=== PATIENT | male | born 1955 | race Caucasian/White ===

== ENCOUNTER 2020-04-02 22:50 | Emergency (ER) | payer OTHER ==
[~2020-04-02] VITALS: Ht 180.3 cm; Wt 109.0 kg
--- NOTE | 2020-04-02 23:14 | NUR ---
THIS IS A 64 YO MALE BIB [facility] FROM HOME. PATIENT GOT PNA SHOT 4 DAYS AGO, HAS BEEN FEELING SLIGHTLY SOB, MUSCLE/BODY ACHES SINCE THEN. TODAY, HAD ABOUT 6 BEERS, WENT TO SIT ON TOILET AND MISSED, AND GOT STUCK BETWEEN THE TOILET AND THE WALL FOR 2 HOURS. PATIENT BROEK TOILET AFTER 2 NHOURS TO GET OUT AND CALLED [facility]. MINOR SUPERFICIAL LACS TO BILATERAL HANDS. DENIES LOC, DENIES DIZZINESS OR LIGHTHEADED. A&OX4, NSR ON PATIENT CLERICAL ASSISTANT. VSS, NADN. CALL LIGHT IN REACH
--- NOTE | 2020-04-02 23:18 | NUR ---
PATIENT DOES NOT RECALL IF HE TOOK DIMITRI CASTANEDA.
--- NOTE | 2020-04-02 23:23 | NUR ---
PATIENT TO XRAY
[2020-04-02 23:28] LABS: BASOPHILS % (AUTO) 0 % (0-1); EOSINOPHILS % (AUTO) 0 % (1-7); LYMPHOCYTES % (AUTO) 15 % (22-44); MEAN CORPUSCULAR HEMOGLOBIN 34.6 pg (27.5-34.5); MEAN CORPUSCULAR HGB CONC 34.5 g/dL (33.2-36.2); MEAN PLATELET VOLUME 7.9 fL (7.4-10.4); MONOCYTES % (AUTO) 8 % (2-9); NEUTROPHILS % (AUTO) 76 % (42-75); PLATELET COUNT 202 x10^3/uL (130-400); RED CELL DISTRIBUTION WIDTH 13.6 % (9.4-14.8)
[2020-04-02 23:32] LABS: ALANINE AMINOTRANSFERASE 35 U/L (12-78); ALBUMIN 3.8 g/dL (3.4-5.0); ANION GAP 12 mmol/L (5-15); CALCIUM 8.4 mg/dL (8.5-10.1); CHLORIDE 91 mmol/L (98-107); CREATININE 0.74 mg/dL (0.7-1.3)
[2020-04-02 23:33] LABS: MD NO
[2020-04-02 23:37] LABS: ALKALINE PHOSPHATASE 100 U/L (45-117); BILIRUBIN,TOTAL 0.6 mg/dL (0.2-1.0); CREATINE KINASE, TOTAL 170 U/L (39-308); TOTAL PROTEIN 7.3 g/dL (6.4-8.2); TROPONIN I < 0.015 ng/mL (0.000-0.045)
--- NOTE | 2020-04-03 00:11 | NUR ---
PATIENT AMBULATORY WITH STEADY GAIT TO RESTROOM
[2020-04-03 00:12] VITALS: BP 143/97
--- NOTE | 2020-04-03 01:00 | NUR ---
Patient given discharge instructions and they have confirmed that they understand the instructions. Patient ambulatory with steady gait.
== END 2020-04-03 01:17 | disposition home or self-care (01) ==
LOC: ED 04-03 00:10
DX: S51.012A Laceration without foreign body of left elbow, initial encounter (principal); S09.90XA Unspecified injury of head, initial encounter; F10.120 Alcohol abuse with intoxication, uncomplicated; E87.1 Hypo-osmolality and hyponatremia; R94.31 Abnormal electrocardiogram [ECG] [EKG]; I10 Essential (primary) hypertension; W01.0XXA Fall on same level from slipping, tripping and stumbling without subsequent striking against object, initial encounter; Y93.89 Activity, other specified; Y92.098 Other place in other non-institutional residence as the place of occurrence of the external cause; Y99.8 Other external cause status; Y90.9 Presence of alcohol in blood, level not specified
CPT/HCPCS: 36415; 70450; 71046; 80053; 80307; 82550; 84484; 85025; 93005; 99285

== ENCOUNTER 2020-04-04 21:21 | Emergency (ER) | payer MEDICARE, OTHER ==
[~2020-04-04] VITALS: Ht 180.3 cm; Wt 109.1 kg
[2020-04-04] MEDS ORDERED: THIAMINE 100 MG/ML, 2ML IM ONE (22:30)
[2020-04-04] MEDS ORDERED: LORazepam 1MG TABLET PO ONE (22:30)
[2020-04-04 22:38] LABS: BASOPHILS % (AUTO) 1 % (0-1); EOSINOPHILS % (AUTO) 3 % (1-7); LYMPHOCYTES % (AUTO) 25 % (22-44); MEAN CORPUSCULAR HEMOGLOBIN 34.7 pg (27.5-34.5); MEAN CORPUSCULAR HGB CONC 34.5 g/dL (33.2-36.2); MONOCYTES % (AUTO) 11 % (2-9); NEUTROPHILS % (AUTO) 61 % (42-75); PLATELET COUNT 195 x10^3/uL (130-400); RED BLOOD COUNT 4.38 x10^6/uL (4.38-5.82); RED CELL DISTRIBUTION WIDTH 13.7 % (9.4-14.8)
--- NOTE | 2020-04-04 22:40 | NUR ---
Pt requesting something to help clam him. States he feels like he is crawling out of his skin. VSS. ERP aware and orders received.
[2020-04-04 22:43] LABS: ALANINE AMINOTRANSFERASE 40 U/L (12-78); ANION GAP 11 mmol/L (5-15); CALCIUM 8.4 mg/dL (8.5-10.1); CHLORIDE 90 mmol/L (98-107); CREATININE 0.71 mg/dL (0.7-1.3)
[2020-04-04 22:48] LABS: ALKALINE PHOSPHATASE 112 U/L (45-117); TOTAL PROTEIN 7.3 g/dL (6.4-8.2); TROPONIN I < 0.015 ng/mL (0.000-0.045)
[2020-04-04] MEDS ORDERED: THIAMINE 100 MG/ML, 2ML ONE (23:03)
[2020-04-04] MEDS ORDERED: LORazepam 1MG TABLET ONE (23:03)
--- NOTE | 2020-04-04 23:10 | NUR ---
Pt medicated per MAR. VSS. Pt to be d/c home if able to ambulate.
--- NOTE | 2020-04-04 23:14 | NUR ---
Tech at bedside for EKG.
[2020-04-04 23:33] LABS: MD SCAN
[2020-04-04 23:58] VITALS: BP 117/82
== END 2020-04-05 00:10 | disposition home or self-care (01) ==
LOC: ED 23:30
DX: F10.120 Alcohol abuse with intoxication, uncomplicated (principal); E87.1 Hypo-osmolality and hyponatremia; Z72.9 Problem related to lifestyle, unspecified; R53.1 Weakness; R53.83 Other fatigue; R63.0 Anorexia; R94.31 Abnormal electrocardiogram [ECG] [EKG]; I10 Essential (primary) hypertension; E78.5 Hyperlipidemia, unspecified; Z87.891 Personal history of nicotine dependence; W01.0XXA Fall on same level from slipping, tripping and stumbling without subsequent striking against object, initial encounter; Y93.89 Activity, other specified; Y92.89 Other specified places as the place of occurrence of the external cause; Y99.8 Other external cause status; Y90.9 Presence of alcohol in blood, level not specified
CPT/HCPCS: 36415; 80053; 80307; 82140; 84484; 85025; 93005; 96372; 99284; J3411